=== PATIENT | male | born 1995 | race Caucasian/White ===

== ENCOUNTER 2017-02-25 10:03 | Emergency (ER) | payer MEDICAID ==
[~2017-02-25] VITALS: Ht 167.6 cm; Wt 62.0 kg
[~2017-02-25 10:03] MED LIST: NAPR-688 PO
[2017-02-25 10:05] VITALS: Ht 167.6 cm; Wt 62.0 kg
[2017-02-25] MEDS ORDERED: DIPHTH/TET/ACEL PERTUSS (ADULT) 0.5 ML VIAL IM* ONE (10:30)
[2017-02-25] MEDS ORDERED: ACETAMINOPHEN 325 MG TAB PO STA (10:36)
[2017-02-25] MEDS ORDERED: ACET325T33 PO (10:38)
--- NOTE | 2017-02-25 10:44 | ERD ---
ER Documentation Chief Complaint Date/Time DATE: 02/25/17 TIME: 10:40 Chief Complaint HEAD LAC S/P HAMMER FELL ON HEAD , NO K/O HPI 21 year old male presenting to the emergency department with a small scalp laceration status post hammer falling on top of his head from a shelf 30 minutes prior to being seen. Patient denies any loss of consciousness, nausea, lethargy, vomiting. He denies any neuro deficits. Patient states the pain is 4 out of 10. He states that he did feel slightly dizzy after the incident but is resolving. Patient has not taken any medications for this ROS All systems reviewed and are negative except as per history of present illness. Medications Home Meds Active Scripts Acetaminophen* (Tylenol*) 325 Mg Tablet, 2 TAB PO Q4 Y for PAIN AND OR ELEVATED TEMP, #20 TAB Prov:CRUZ GASTON PA-C 02/25/17 Naproxen* (Naproxen*) 500 Mg Tablet, 500 MG PO BID, #30 TAB Prov:FRANKLYN JAY DO 02/03/16 Allergies Allergies: Coded Allergies: No Known Allergy (Unverified , 02/25/17) PMhx/Soc Medical and Surgical Hx: pt denies Surgical Hx History of Surgery: No Anesthesia Reaction: No Hx Neurological Disorder: No Hx Respiratory Disorders: Yes (asthma since ) Hx Cardiac Disorders: No Hx Psychiatric Problems: No Hx Miscellaneous Medical Probl: No Hx Alcohol Use: Yes (occassional) Hx Substance Use: No Hx Tobacco Use: No Smoking Status: Never smoker Physical Exam Vitals Vital Signs Date Time Temp Pulse Resp B/P Pulse Ox O2 Delivery O2 Flow Rate FiO2 02/25/17 10:05 97.9 74 18 133/81 99 Physical Exam GENERAL: well-developed/well-nourished, in no apparent distress, non-toxic appearing HENT: NC/AT, bilateral tympanic membrane is normal with good cone of light, nares patent, oropharynx clear without exudates EYES: Conjunctiva normal, PERRLA, EOMI, no nystagmus noted NECK: Supple, no lymphadenopathy PULM: CTA bilaterally, no rales, rhonchi, or wheezing heard CV: Normal S1S2, RRR, good capillary refill GI: Soft, non-distended, normal bowel sounds, non-tender BACK: No midline tenderness, no masses, No CVAT EXT: No clubbing, cyanosis, or edema NEURO: Alert and orientated to person, place, and time. CN II-IIX intact. Gait and coordination were normal. [facility] strength were equal and within normal limits SKIN: 1 cm superficial laceration to the right parietal scalp PSYCH: Normal mood and mentation, patient denied SI Results 24 hrs Current Medications Medications (Trade) Dose Ordered Sig/Piedad Route PRN Reason Start Time Stop Time Status Last Admin Dose Admin Diphtheria/ Tetanus/Acell Pertussis (Adacel) 0.5 ml ONCE ONCE IM* 02/25/17 10:30 02/25/17 10:31 DC 02/25/17 10:36 Acetaminophen (Tylenol Tab) 650 mg ONCE STAT PO 02/25/17 10:36 02/25/17 10:37 DC Procedures/MDM 21-year-old malepresents to the ER with an acute head injury and superficial scalp laceration due to having a hammer fault of his head from a shelf 30 minutes prior to being seen. Differentials include but not limited to concussion, post-concussion headache, intracranial bleeding/hemorrhage, and skull fracture. At this time patient was speaking clearly, stable vital signs he had no neurological deficits on examination. I have discussed the risks and the benefits of a CT scan and patient states that he will have close observation and return to the emergency department for any worsening signs or symptoms. The laceration was very superficial and required 2 blair. In the ED the laceration was cleansed with copious amount of normal saline and 2 blair were then applied without any complications. She did have a mild headache status post blair and was given Tylenol 650 mg. In addition patient was updated on his tetanus shot. I have given strict precautions to return to the ER for nausea, vomiting, behavioral changes, and lethargy. DISPOSITION: hemodynamically stable and neurovascularly intact. Strict precautions were given to return to the ER with any new signs or symptoms or if condition worsens. Discussed 7 days staple removal. Patient understood and agreed with this plan. Departure Diagnosis: Primary Impression: Acute head injury Additional Impression: Scalp laceration Condition: Stable Patient Instructions: First Aid: Head Injuries, Scalp Contusion, No Wake Up, HEAD INJURY, No Wake-Up (Adult), Laceration, Scalp Additional Instructions: Follow up with your physician to remove the stitches in 7-10 days Take all medicines as directed. Return to this facility if you are not improving as expected. CRUZ GASTON PA-C Feb 25, 2017 10:44
== END 2017-02-25 10:45 | disposition home or self-care (01) ==
LOC: FTE 10:03
DX: S01.01XA Laceration without foreign body of scalp, initial encounter (principal); J45.909 Unspecified asthma, uncomplicated; W20.8XXA Other cause of strike by thrown, projected or falling object, initial encounter; Y92.9 Unspecified place or not applicable
CPT/HCPCS: 12001; 90471; 90715; Z7502; Z7610

== ENCOUNTER 2019-05-25 23:44 | Emergency (ER) | payer MEDICAID, OTHER ==
[~2019-05-25] VITALS: Ht 167.6 cm; Wt 67.6 kg
[~2019-05-25 23:44] MED LIST changes: +ACET325T33 PO
[2019-05-25 23:45] VITALS: Ht 167.6 cm; Wt 67.6 kg
--- NOTE | 2019-05-26 00:54 | ERD ---
ER Documentation Chief Complaint Chief Complaint L EAR PAIN X'S 2 HOURS; FEVER HPI Patient is a 24 years old male with past medical history of frequent ear infection and asthma presenting to the clinic for left ear pain and fever X 2 hours. Denies taking any [id number] medication significant trip to the ER. Patient denies all other review of systems. ROS All systems reviewed and are negative except as per history of present illness. Medications Home Meds Active Scripts Ibuprofen* (Motrin*) 800 Mg Tab, 800 MG PO Q6H PRN for PAIN AND OR ELEVATED TEMP, #30 TAB Prov:NGHIA MENDOZA PA-C 05/26/19 Amoxicillin/Potassium Clav (Amox-Clav 875-125 mg Tablet) 875-125 mg Tab, 1 TAB PO BID for 10 Days, #20 TAB Prov:NGHIA MENDOZA PA-C 05/26/19 Acetaminophen* (Tylenol*) 325 Mg Tablet, 2 TAB PO Q4 PRN for PAIN AND OR ELEVATED TEMP, #20 TAB Prov:CRUZ GASTON PA-C 02/25/17 Naproxen* (Naproxen*) 500 Mg Tablet, 500 MG PO BID, #30 TAB Prov:FRANKLYN JAY DO 02/03/16 Allergies Allergies: Coded Allergies: No Known Allergy (Unverified , 02/25/17) PMhx/Soc History of Surgery: No Anesthesia Reaction: No Hx Neurological Disorder: No Hx Respiratory Disorders: Yes (asthma since ) Hx Cardiac Disorders: No Hx Psychiatric Problems: No Hx Miscellaneous Medical Probl: No Hx Alcohol Use: Yes (occassional) Hx Substance Use: No Hx Tobacco Use: Yes Smoking Status: Current every day smoker FmHx Family History: No diabetes, No coronary disease, No other Physical Exam Vitals Vital Signs Date Temp Pulse Resp B/P (MAP) Pulse Ox O2 O2 Flow FiO2 Time Delivery Rate 05/25/19 97.3 88 18 136/91 100 23:45 (106) Physical Exam Const: No acute distress Head: Atraumatic Eyes: Normal Conjunctiva ENT: Normal External Ears, Nose and Mouth. Left tympanic membrane erythematous without discharge or perforation noted. Neck: Full range of motion. No meningismus. Resp: Clear to auscultation bilaterally Cardio: Regular rate and rhythm, no murmurs Neur: Awake and alert Psych: Normal Mood and Affect Results 24 hrs Current Medications Medications Dose Sig/Piedad Start Time Status Last (Trade) Ordered Route PRN Stop Time Admin Dose Reason Admin Ibuprofen 800 mg ONCE ONCE 05/26/19 (Motrin) PO 01:00 05/26/19 01:01 Procedures/MDM Patient was seen and evaluated for left ear pain which is most significant for otitis media without complication. Patient was given ibuprofen 80 mg in the ED. Patient is stable and ready for discharge. Follow-up with PCP. Patient will be discharged with ibuprofen and Augmentin for 10 days. Departure Diagnosis: Primary Impression: Otitis media Otitis media type: suppurative Chronicity: acute Laterality: left Recurrence: non-recurrent Spontaneous tympanic membrane rupture: without spontaneous rupture Qualified Codes: H66.002 - Acute suppurative otitis media without spontaneous rupture of ear drum, left ear Condition: Stable Patient Instructions: Otitis Media, Abx Tx (Adult) Referrals: [facility] Additional Instructions: Patient advised to return to the ED immediately for new or worsening symptoms. Patient advised to follow up with primary care provider in the next 24-48 hours. Patient verbalized understanding and agrees with treatment plan and course of action. If patient has no primary care they may follow up with [facility] [address] [place] [id number] or [facility] [address] [place] [address] or [facility] [address] [place] [address] NGHIA MENDOZA PA-C May 26, 2019 00:54
[2019-05-26] MEDS ORDERED: AMOX1TAB10 PO (00:56)
[2019-05-26] MEDS ORDERED: IBUP800T48 PO (00:56)
[2019-05-26] MEDS ORDERED: IBUPROFEN 800 MG TAB PO ONE (01:00)
[2019-05-26 01:10] VITALS: BP 128/72; PULSE 84; RESP 17
== END 2019-05-26 01:10 | disposition home or self-care (01) ==
LOC: FTE 23:44
DX: H66.002 Acute suppurative otitis media without spontaneous rupture of ear drum, left ear (principal); F17.210 Nicotine dependence, cigarettes, uncomplicated; J45.909 Unspecified asthma, uncomplicated
CPT/HCPCS: Z7502; Z7610; 99283